=== PATIENT | female | born 1950 | race Two or more races ===

== ENCOUNTER 2023-08-06 06:15 | Inpatient (IN) | payer OTHER ==
[~2023-08-06 06:15] MED LIST: LEVOTHYROXINE25 MCG PO; LIPITOR20 MG PO; TENORMIN100 M1 PO
[2023-08-07] MEDS ORDERED: ALEVE220 M1 PO (07:27)
[2023-08-07] MEDS ORDERED: PERCOCET 5-3251 EACH PO (07:27)
[2023-08-07] MEDS ORDERED: DUI500 PO (07:27)
== END 2023-08-07 10:26 | disposition home or self-care (01) | DRG 483 ==
LOC: CIR.AMB 06:15 → SURH 13:25 → O/R 13:25 → SURH 13:47 → CIR.AMB 15:15 → SURH 08-07 10:26
PROVIDERS: ADMIT Orthopaedic Surgery; ATTEND Orthopaedic Surgery
PROC: 0LS30ZZ Reposition Right Upper Arm Tendon, Open Approach (ICD-10-PCS; 2023-08-06)
PROC: 0PUC0JZ Supplement Right Humeral Head with Synthetic Substitute, Open Approach (ICD-10-PCS; 2023-08-06)
PROC: 0RRJ0JZ Replacement of Right Shoulder Joint with Synthetic Substitute, Open Approach (ICD-10-PCS; principal; 2023-08-06 15:15)
DX: M19.011 Primary osteoarthritis, right shoulder (principal); M75.121 Complete rotator cuff tear or rupture of right shoulder, not specified as traumatic; Z20.822 Contact with and (suspected) exposure to COVID-19